=== PATIENT | female | born 1960 | race Caucasian/White ===

== ENCOUNTER 2017-09-25 23:48 | Emergency (ER) | payer MEDICAID, OTHER ==
[~2017-09-25] VITALS: Ht 149.9 cm; Wt 72.7 kg
[2017-09-26] MEDS ORDERED: GABA-283 PO (00:01)
[2017-09-26] MEDS ORDERED: CLONI1TA PO (00:01)
[2017-09-26] MEDS ORDERED: COUM1TAB14 PO (00:01)
[2017-09-26] MEDS ORDERED: VITA100067 PO (00:01)
[2017-09-26 01:47] VITALS: BP 124/66
--- NOTE | 2017-09-28 09:56 | REPUSA ---
CLINICAL HISTORY: Head trauma. TECHNIQUE: Multiple axial brain CT scan sections were obtained from base to vertex without contrast a dministration. COMMENTS: Right frontal subgaleal soft tissue contusion. There is no evidence of skull fracture. The study shows normal configuration of sella turcica. There are no intra or extra-axial collections. There is no mass effect or midline shift. There is no evidence of hematoma formation. No hydrocephal us is present. No abnormal calcifications are noted. No significant abnormalities are seen either in the posterior fossa or supratentorial compartment. The sinuses and mastoid air cells are patent. IMPRESSION: Right frontal subgaleal soft tissue contusion. No evidence of acute intracranial pathology. No intracranial hemorrhage or skull fracture. Thank you for your kind referral of this patient.
== END 2017-09-26 02:08 | disposition home or self-care (01) ==
LOC: M ED 23:48 → EDBD 23:48 → EDSEX 23:48 → M ED 09-26 02:08
DX: S00.93XA Contusion of unspecified part of head, initial encounter (principal); Y04.0XXA Assault by unarmed brawl or fight, initial encounter; Y92.009 Unspecified place in unspecified non-institutional (private) residence as the place of occurrence of the external cause; Y93.89 Activity, other specified; Y99.8 Other external cause status; I10 Essential (primary) hypertension; Z86.711 Personal history of pulmonary embolism